=== PATIENT | female | born 1985 | race Caucasian/White ===

== ENCOUNTER 2023-11-27 08:40 | Outpatient (AMB) | payer MEDICARE, MEDICAID, SELFPAY ==
--- NOTE | 2023-11-27 08:41 | MHC.OFFWIV ---
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 She reports shortness of breath and wheezing despite using her albuterol and ventolin inhalers. She has been feeling hot however has not taken her temperature. Denies any other sick symptoms. Denies exposure to sick contacts. Covid test at home was negative. Review of Systems Const All systems reviewed & are unremarkable except as noted in HPI and below Physical Exam Vital Signs: Last Vital Signs Pulse 95 11/27/23 08:50 BP 110/70 11/27/23 08:50 Pulse Ox 100 11/27/23 08:50 Oxygen Delivery Method Room Air 11/27/23 08:50 BMI result Body Mass Index 29.4 Const General: cooperative and no acute distress HEENT Head: Yes normal to inspection Ears: hearing grossly normal bilaterally General nose exam: Normal external nose present Mouth: Normal oral and palatal mucosa present and moist mucous membranes Throat: Yes posterior oropharynx normal Neck Neck: Yes no lymphadenopathy Resp Effort & Inspection: labored (mildly labored) Auscultation: wheezes (otherwise clear) upper bilaterally Cardio Jugular venous distension: no JVD Palpation: normal PMI Rate: regular rate Rhythm: regular rhythm Skin General skin exam: no rashes or lesions noted Extrem General: Yes capillary refill normal and Yes no clubbing, cyanosis or edema Psych Appearance: grossly normal Mental Status: mental status grossly normal Speech and movement: Normal speech and movement present Office Procedures Nebulizer Treatment Nebulizer Treatment [id number]/MDI RX initial, or Nebulizer Subsequent Treatment Office Meds ipratropium 0.5 mg-albuterol 3 mg (2.5 mg base)/3 mL nebulization soln Performing Provider: ENEIDA Colbert Performing Location: [facility] [place] Administered by: Halie Bean RN on 11/27/23 09:20 Dose Route Admin Location Dispensed Lot Number Expiration Date NDC Marine Meteorologist 3 mL inhalation 3 mL [id number] 08/23/24 5858-2952-36 [facility] Assessment & Plan Assessment & Plan (1) Shortness of breath: Code(s): R06.02 - Shortness of breath Plan: Nebulizer treatment provided in the office with good effect. Significantly reduced wheezing following treatment. (2) Asthma with exacerbation: Code(s): J45.901 - Unspecified asthma with (acute) exacerbation Qualifiers: Asthma severity: unspecified severity Asthma persistence: unspecified Qualified Code(s): J45.901 - Unspecified asthma with (acute) exacerbation Plan: I am going to start patient on abx and prednisone as this is likely an acute asthmatic bronchitis. She declined any further viral testing. Advised to continue to use ventolin at home as needed. Refill provided on this per patient request. We reviewed use of prescribed medications. If she does not improve with treatment she should return to the clinic for further evaluation. She agrees to plan. Orders: Orders AMB Nebulizer Treatment Today R06.02 - Shortness of breath Medications: New azithromycin For 250 mg dose pack: take 500 mg today (day 1), then 250 mg for 4 days (days 2-5) PO 6 tabs 0RF J45.909 - Unspecified asthma, uncomplicated prednisone 20 mg PO BID 5 days 10 tabs 0RF J45.909 - Unspecified asthma, uncomplicated albuterol sulfate 90 mcg/actuation (Ventolin HFA) 1 inh inhalation QID PRN 6.7 grams 0RF shortness of breath or wheezing J45.901 - Unspecified asthma with (acute) exacerbation Coding Level of Care Code Est Pt Level 3 (51877) Diagnoses Shortness of breath R06.02 Asthma with acute exacerbation, unspecified asthma severity, unspecified whether persistent J45.901 Asthma severity: unspecified severity Asthma persistence: unspecified CPT Codes Nebulizer Treatment - Nebulizer Treatment, initial or subsequent: [id number]/MDI RX initial, or Nebulizer Subsequent Treatment ([id number])
[2023-11-27 08:50] VITALS: BP 110/70; PULSE 95; O2SAT 100; BMI 29.4
== END 2023-11-27 09:39 | disposition home or self-care (01) ==
PROVIDERS: PCP Internal Medicine; Visit Provider Nurse Practitioner Family
DX: R06.02 Shortness of breath (principal); J45.901 Unspecified asthma with (acute) exacerbation
CPT/HCPCS: 94640; 99213; J7620

== ENCOUNTER 2023-11-28 09:20 | Outpatient (AMB) | payer MEDICARE, MEDICAID, SELFPAY ==
[2023-11-28 10:23] VITALS: BP 112/86; PULSE 96; TEMP 36.8; O2SAT 99; BMI 29.6
--- NOTE | 2023-11-28 10:23 | MHC.OFFWIV ---
Intake Vital Signs 11/28/23 10:23 Height 5 ft 2 in Weight 162 lb BMI 29.6 BP 112/86 Blood Pressure Location Rt brachial Position Sitting Pulse 96 Pulse Source Pulse Oximeter Temp 98.3 F Temp Source Oral Pulse Oximetry (%) 99 Oxygen Delivery Method Room Air Intake Visit Reasons: EP, asthma,fatigue,still not better (masked) Intake Note: Pt is here today c/o asthma, SOB and fatigue x4days Allergies Penicillins [PENICILLINS] Allergy (Unknown, Verified 11/28/23 10:26) DIF BREATHING PCN Allergy (Unknown, Uncoded 11/28/23 10:26) Unknown Do you need a note to return to daycare/school/sports/work: No HPI HPI Comments History of Present Illness Details 37 yo female that returns for concern of asthma exacerbation. Patient was seen yesterday and told to return if she did feel better. Started on prednisone as well as a azithromycin Review of Systems Card Reports dyspnea Resp Reports dyspnea Physical Exam Vital Signs: Last Vital Signs Temp 98.3 F 11/28/23 10:23 Pulse 96 11/28/23 10:23 BP 112/86 11/28/23 10:23 Pulse Ox 99 11/28/23 10:23 Oxygen Delivery Method Room Air 11/28/23 10:23 BMI result Body Mass Index 29.6 Const General: cooperative, healthy appearing, no acute distress and alert Orientation/consciousness: patient oriented x3 Limitations: no limitations HEENT Head: Yes normal to inspection Ears: hearing grossly normal bilaterally General nose exam: Normal external nose present Resp Other: No evidence of respiratory distress no tripoding. Mild expiratory wheeze. Effort & Inspection: normal respiratory effort and able to speak in complete sentences Cardio Rate: regular rate Skin General skin exam: no rashes or lesions noted Neuro General: patient oriented x3 Extrem General: Yes normal to inspection Office Procedures Nebulizer Treatment Nebulizer Treatment [id number]/MDI RX initial, or Nebulizer Subsequent Treatment Office Meds albuterol sulfate 2.5 mg/3 mL (0.083 %) solution for nebulization Performing Provider: ANASTACIO Rodarte Performing Location: [facility] Administered by: Birdie Vasquez CMA on 11/28/23 11:11 Dose Route Admin Location Dispensed Lot Number Expiration Date NDC Mechanical Systems Designer 2.5 mg inhalation inhalation 3 mL [id number] 02/20/25 60021-623-68 [employer] Assessment & Plan Assessment & Plan (1) Asthma with exacerbation: Code(s): J45.901 - Unspecified asthma with (acute) exacerbation Qualifiers: Asthma persistence: persistent Asthma severity: mild Qualified Code(s): J45.31 - Mild persistent asthma with (acute) exacerbation Plan: VSs. Mild expiratory wheeze will provide nebulizer Patient with improvement symptoms recommend she continue with treatment as prescribed at home. (2) Shortness of breath: Code(s): R06.02 - Shortness of breath Plan: See above Plan See above Orders: Orders AMB Nebulizer Treatment Today R06.02 - Shortness of breath Coding Level of Care Code Est Pt Level 3 (10177) Diagnoses Mild persistent asthma with acute exacerbation J45.31 Asthma persistence: persistent Asthma severity: mild Shortness of breath R06.02 CPT Codes Nebulizer Treatment - Nebulizer Treatment, initial or subsequent: [id number]/MDI RX initial, or Nebulizer Subsequent Treatment ([id number])
== END 2023-11-28 11:16 | disposition home or self-care (01) ==
PROVIDERS: PCP Internal Medicine; Visit Provider Physician Assistant
DX: J45.31 Mild persistent asthma with (acute) exacerbation (principal); R06.02 Shortness of breath
CPT/HCPCS: 94640; 99213; J7613